=== PATIENT | female | born 1970 | race Caucasian/White ===

== ENCOUNTER 2017-01-14 06:32 | Day surgery (SDC) | payer OTHER ==
[~2017-01-14] VITALS: Ht 162.6 cm; Wt 99.8 kg
[2017-01-14] MEDS ORDERED: ceFAZolin 1,000 MG VIAL ONE (07:40)
[2017-01-14] MEDS ORDERED: BUPIVACAINE-MPF/EPI 0.25% 30 ML VIAL INJ ONE (07:40)
[2017-01-14] MEDS ORDERED: PROPOFOL 200 MG/20 ML VIAL IV ONE (07:42)
[2017-01-14] MEDS ORDERED: KETOROLAC 30 MG/ML VIAL IVP ONE (07:42)
[2017-01-14] MEDS ORDERED: fentaNYL 0.05 MG/ML VIAL ONE (07:42)
[2017-01-14] MEDS ORDERED: GLYCOPYRROLATE 0.2 MG/ML VIAL IV ONE (07:42)
[2017-01-14] MEDS ORDERED: ONDANSETRON 4 MG/2 ML VIAL IVP ONE (07:42)
[2017-01-14] MEDS ORDERED: ROCURONIUM 50 MG/5 ML VIAL IV ONE (07:42)
[2017-01-14] MEDS ORDERED: DEXAMETHASONE 4 MG/ML VIAL IVP ONE (07:42)
[2017-01-14] MEDS ORDERED: NEOSTIGMINE 1:1000 10 MG/10 ML VIAL IM ONE (07:42)
[2017-01-14] MEDS ORDERED: HYDROmorphone PFS 2 MG/ML SYR ONE ×2 (07:43→09:12)
[2017-01-14] MEDS ORDERED: [UNRECOGNIZED DRUG - CODE] PO (07:46)
[2017-01-14] MEDS ORDERED: IBUP-2213 PO (07:46)
[2017-01-14] MEDS ORDERED: ACET-3783 PO (07:46)
[2017-01-14] MEDS ORDERED: LORA1TAB7 PO (07:46)
[2017-01-14] MEDS ORDERED: ONDANSETRON 4 MG/2 ML VIAL IVP PRN (08:25)
[2017-01-14] MEDS ORDERED: MORPHINE SULFATE 2 MG/ML SYR IVP PRN (09:05)
[2017-01-14] MEDS ORDERED: MORPHINE SULFATE 4 MG/ML SYR IV PRN (09:05)
[2017-01-14] MEDS: HYDROmorphone 1 MG/ML AMP IVP PRN ×4 (09:05→09:35)
[2017-01-14] MEDS ORDERED: ONDANSETRON 4 MG/2 ML VIAL IV PRN (09:05)
[2017-01-14] MEDS ORDERED: HYDROmorphone 1 MG/ML AMP IVP PRN (09:05)
[2017-01-14] MEDS ORDERED: HYDROcodone/APAP 5/325 MG 1 TAB TAB PO PRN (09:05)
== END 2017-01-14 12:38 | disposition home or self-care (01) ==
LOC: MDS 06:32 → MMU 06:33 → MDS 12:38
PROVIDERS: ATTEND Surgery
DX: K42.9 Umbilical hernia without obstruction or gangrene (principal); K21.9 Gastro-esophageal reflux disease without esophagitis; Z98.51 Tubal ligation status; F41.9 Anxiety disorder, unspecified; Z98.890 Other specified postprocedural states
CPT/HCPCS: 49585; 71010; 93005; C1781; J0690; J1100; J1170; J1885; J2270; J2405; J2704; J2710; J3010; J3490; J7060; J7120